=== PATIENT | female | born 2000 | race Two or more races ===

== ENCOUNTER 2019-06-01 21:13 | Inpatient (IN) | payer OTHER ==
[2019-06-01] MEDS ORDERED: RINGERS SOLUTION,LACTATED 300 ML IV ONE (21:31)
[2019-06-01] MEDS ORDERED: DINOPROSTONE 10 MG VAGINAL INSERT.SR PV PRN (21:31)
[2019-06-01 21:58] LABS: APPEARANCE,URINE CLEAR; BILIRUBIN,URINE NEGATIVE (NEGATIVE); COLOR,URINE YELLOW; GLUCOSE, URINE NEGATIVE (NEGATIVE); KETONES,URINE 20 mg/dL (NEGATIVE); LEUKOCYTE ESTERASE,URINE NEGATIVE (NEGATIVE); NITRITE,URINE NEGATIVE (NEGATIVE); PROTEIN,URINE 100 mg/dL (NEGATIVE); URINE SPECIFIC GRAVITY 1.009; UROBILINOGEN,URINE NEGATIVE mg/dL (<2.0)
[2019-06-01 22:13] LABS: URINE AMPHETAMINES SCREEN NEGATIVE; URINE BARBITURATES SCREEN NEGATIVE; URINE BENZODIAZEPINES SCREEN NEGATIVE; URINE COCAINE SCREEN NEGATIVE; URINE MARIJUANA (THC) SCREEN NEGATIVE; URINE METHADONE SCREEN NEGATIVE; URINE PHENCYCLIDINE SCREEN NEGATIVE
[2019-06-01] MEDS ORDERED: DINOPROSTONE 10 MG VAGINAL INSERT.SR ONE (22:27)
[2019-06-01 22:29] LABS: ABSOLUTE MONOCYTES (AUTO) 0.4 10^3/uL (0.1-1.4); ABSOLUTE NEUT (AUTO) 4.6 10^3/uL (1.7-8.2); BASOPHILS % (AUTO) 0.4 % (0-2); EOSINOPHILS % (AUTO) 0.5 % (0-6); HEMATOCRIT 30.7 % (36.0-47.0); LYMPHOCYTES % (AUTO) 27.9 % (13-45); MEAN CORPUSCULAR HEMOGLOBIN 24.6 pg (27.0-33.4); MEAN CORPUSCULAR HGB CONC 32.7 g/dL (32.0-36.0); MEAN CORPUSCULAR VOLUME 75 fl (80-97); MONOCYTES % (AUTO) 6.2 % (3-13); PLATELET COUNT 284 10^3/uL (150-450); RED BLOOD COUNT 4.09 10^6/uL (3.72-5.28); RED CELL DISTRIBUTION WIDTH 15.6 % (11.5-14.0); TOTAL CELLS COUNTED % (AUTO) 100 %
--- NOTE | 2019-06-02 05:53 | Admission Physical ---
Datetime Report Generated by CPN: 06/02/2019 05:52 CURRENT ADMISSION Chief Complaint: Scheduled Induction of Labor Indication for Induction: Gestational HTN Admit Impression : Term, Intrauterine ; Induction of Labor Admit Plan: Admit to Unit; Initiate Labor Induction Protocol ALLERGIES Medication Allergies: No Medication Allergies: No Known Allergies (06/01/2019) Latex: No Latex Allergies Food Allergies: no Environmental Allergies: no OBSTETRICAL HISTORY EDC: 06/06/2019 00:00 : 1 Para: 0 Term: 0 : 0 SAB: 0 IAB: 0 Ectopic: 0 Livin Cesareans: 0 VBACs: 0 Multiple Births: 0 Gestational Diabetes: No Rh Sensitization: No Incompetent Cervix: No NAM: No Infertility: No ART Treatment: No Uterine Anomaly: No IUGR: No Hx Previous C/S: No Macrosomia: No Hx Loss/Stillborn: No PIH: Yes Hx : No Placenta Previa/Abruption: No Depression/PP Depression: No PTL/PROM: No Post Hemorrhage: No Current Procedures: Ultrasound SEE RECORDS Alcohol: No Marijuana : No Cocaine: No Other Illicit Drugs: No Cigarettes: Never Smoker. [id number] MEDICAL HISTORY Diabetes: No Blood Transfusion: No Pulmonary Disease (Asthma, TB): No Breast Disease: No Hypertension: Yes Car Wrecker Surgery: No Heart Disease: No Hosp/Surgery: No Autoimmune Disorder: No Anesthetic Complications: No Kidney Disease: No Abnormal Pap Smear: No Neuro/Epilepsy: No Psychiatric Disorders: No Other Medical Diseases: No Hepatitis/Liver Disease: No Significant Family History: No Varicosities/Phlebitis: No Trauma/Violence : No Thyroid Dysfunction: No INFECTIOUS HISTORY Gonorrhea: No Genital Herpes: No Chlamydia: No Tuberculosis: No Syphilis: No Hepatitis: No HIV/AIDS Exposure: No Rash or Viral Illness: No HPV: No PHYSICAL EXAM General: Normal HEENT: Normal Neurologic: Normal Thyroid: Normal Heart: Normal Lungs: Normal Breast: Normal Back: Normal Abdomen: Normal Genitourinary Exam: Normal Extremities: Normal DTRs: Normal Pelvic Type: Adequate Vital Signs: Reviewed; Within Normal Limits VAGINAL EXAM Dilatation: 0 Effacement: 0 Station: -3 FETUS A EGA: 39.3 Monitoring: External US FHR- Baseline: 140 Variability: Moderate 6-25bpm Accelerations: 15X15 Decelerations: None FHR Category: Category I Estimated Weight (gm): 3900 Presentation: Vertex PLANS FOR LABOR AND DELIVERY Labor and Delivery: None Pain Management: Epidural Feeding Preference: Breast Benefit of Breast Feed Discussed: Yes Circumcision: N/A INFORMED CONSENT Signature: with User ID: [email or web address]
[2019-06-02] MEDS ORDERED: MISOPROSTOL 0.2 MG TABLET ONE ×2 (12:36→20:31)
[2019-06-02] MEDS ORDERED: MISOPROSTOL 0.1 MG TABLET ONE ×2 (12:41→18:44)
[2019-06-02] MEDS: MISOPROSTOL 0.1 MG TABLET PV SCH (12:52)
[2019-06-02] MEDS ORDERED: PENICILLIN G-K 5 MILLION UNIT VIAL ONE (19:39)
[2019-06-02] MEDS: RINGERS SOLUTION,LACTATED 1,000 ML IV PRN (19:51)
[2019-06-02] MEDS ORDERED: OXYTOCIN/NORMAL SALINE 20 UNIT/1,000 ML RTUINJ ONE (20:31)
[2019-06-02] MEDS ORDERED: LIDOCAINE 1% INJ-PF (10 MG/ML) 30 ML SDV ONE (20:31)
[2019-06-02] MEDS ORDERED: OXYTOCIN 10 UNIT/ML VIAL ONE (20:31)
[2019-06-02] MEDS ORDERED: ZOLPIDEM TARTRATE 5 MG TABLET PO ONE (23:43)
[2019-06-02] MEDS ORDERED: LABETALOL HCL INJ 20 MG/4 ML DISP.SYRIN IV ONE ×2 (23:43→23:45)
[2019-06-02] MEDS ORDERED: ZOLPIDEM TARTRATE 5 MG TABLET ONE (23:44)
[2019-06-03] MEDS ORDERED: PENICILLIN G-K 5 MILLION UNIT VIAL ONE ×4 (00:22→14:12)
[2019-06-03] MEDS: MISOPROSTOL 0.1 MG TABLET PV SCH (05:08)
[2019-06-03] MEDS ORDERED: OXYTOCIN/NORMAL SALINE 20 UNIT/1,000 ML RTUINJ IV PRN ×2 (05:37→16:50)
[2019-06-03] MEDS ORDERED: LABETALOL HCL 200 MG TABLET ONE (07:56)
[2019-06-03] MEDS ORDERED: LABETALOL HCL INJ 20 MG/4 ML DISP.SYRIN IV ONE ×2 (07:56→07:57)
[2019-06-03] MEDS ORDERED: FENTANYL/BUPIVACAINE/NS/PF 300 MCG/150 ML RTUINJ EPI ONE (09:15)
[2019-06-03] MEDS ORDERED: BUPIVACAINE HCL 0.25 % INJ/PF (2.5 MG/1 ML) 30 ML VIAL ONE (09:15)
[2019-06-03] MEDS ORDERED: EPHEDRINE SULFATE INJ 50 MG/1 ML AMPULE ONE (09:15)
[2019-06-03] MEDS ORDERED: OXYTOCIN/NORMAL SALINE 20 UNIT/1,000 ML RTUINJ ONE (16:36)
[2019-06-03] MEDS ORDERED: ONDANSETRON HCL INJ/PF 4 MG/2 ML SDV ONE ×2 (16:42→16:44)
[2019-06-03] MEDS ORDERED: PROMETHAZINE HCL INJ 25 MG/1 ML VIAL IV PRN (16:50)
[2019-06-03] MEDS ORDERED: PROMETHAZINE HCL 25 MG SUPP.RECT PR PRN (16:50)
[2019-06-03] MEDS ORDERED: MEASLES,MUMPS&RUBELLA VACC/PF 0.5 ML VIAL SUBCUT PRN (16:50)
[2019-06-03] MEDS ORDERED: GLYCERIN/WITCH HAZEL LEAF 1 EACH MED..WIPE TP PRN (16:50)
[2019-06-03] MEDS ORDERED: DIPHENHYDRAMINE HCL 25 MG CAPSULE PO PRN (16:50)
[2019-06-03] MEDS ORDERED: MAGNESIUM HYDROXIDE SUSP 30 ML UDCUP PO PRN (16:50)
[2019-06-03] MEDS ORDERED: PROMETHAZINE HCL 25 MG TABLET PO PRN (16:50)
[2019-06-03] MEDS ORDERED: NA PHOS,M-B/NA PHOS,DI-BA (ADULT) 133 ML ENEMA PR PRN (16:50)
[2019-06-03] MEDS ORDERED: DIBUCAINE 1% OINTMENT 56 GM TP PRN (16:50)
[2019-06-03] MEDS ORDERED: ACETAMINOPHEN 325 MG TABLET PO PRN (16:50)
[2019-06-03] MEDS ORDERED: DIPH/PERTUSS(ACELL)/TETANUS VAC/PF 0.5 ML SYR (>=10YO) IM PRN (16:50)
[2019-06-03] MEDS ORDERED: BENZOCAINE/MENTHOL AEROSOL SPRAY 56 ML TOP PRN (16:50)
[2019-06-03] MEDS ORDERED: PSEUDOEPHEDRINE HCL 30 MG TABLET PO PRN (16:50)
[2019-06-03] MEDS ORDERED: MISOPROSTOL 0.2 MG TABLET PR ONE (16:51)
[2019-06-03] MEDS: RINGERS SOLUTION,LACTATED 1,000 ML IV PRN (17:39)
--- NOTE | 2019-06-03 17:57 | Delivery Summary ---
Del Sum A-C Datetime Report Generated by CPN: 06/03/2019 17:56 DELIVERY PERSONNEL DELIVERY PERSONNEL: [id number] Delivery Doctor:: Marah Pozo CNM Labor and Delivery Nurse:: Nona Sanford RNarboreal scientist Nurse:: Edwige [place] RN Nursery Nurse:: Kira Penn RN Student Observers:: galilea anthony rn a lewis, sna Art Glass Setter/SPIRITUAL COUNSELOR: Ese Tripathi CNA II Art Glass Setter/SPIRITUAL COUNSELOR: Sondra Pillai, ST MATERNAL INFORMATION Delivery Anesthesia: Epidural Medications After Delivery: Pitocin Bolus-Please Comment; Pitocin Drip 20 Units/1000ml NSS Maternal Complications: None Provider Comments: pt progressed to c/c/2 with urge to push, started pushing and went to deliver a viable baby girl with vigorous respiratory effort and cry with tactile stimulation. Baby with terminal meconium, nursery present at delivery. Baby placed on maternal abdomen, cord allowed to stop pulsating then clamped x2 and cut by FOB (3vc noted). Placenta delivered spontaneously intact. Fundus firm @ u-2 and minimal bleeding at first then large bleeding and boggy uterus. cytotec placed rectally and bleeding was better then large bleeding again, vaginal sweep done large clots out. Bleeding continued on and off no lacerations noted except for small abrasions as stated. In and out catheter placed small amount of urine out. Weighted speculum placed and no cervical laceration noted but large clot out and bleeding stable after that. Fundus firm, minimal bleeding, mother and baby continue in room and bonding at this time. LABOR SUMMARY EDC: 06/06/2019 00:00 No. Babies in Womb: 1 Attempted: No Labor Anesthesia: Epidural LABOR INFORMATION Reason for Induction: Gestational Hypertension Onset of Labor: 06/03/2019 08:00 Complete Dilatation: 06/03/2019 14:01 Cervical Ripening Agents: Cytotec @ 200 mcg Oxytocin: Induction Group B Beta Strep: positive Antibiotics # of Doses: 5 Antibiotics Time of Last Dose: 1417 Name of Antibiotic Given: PENICILLIN G Steroids Given: None Reason Steroids Not Administered: Not Applicable MEMBRANES Membranes Rupture Method: Spontaneous Rupture of Membranes: 06/02/2019 13:00 Length of Rupture (hr): 27.08 Amniotic Fluid Color: Moderate Meconium Amniotic Fluid Amount: Moderate Amniotic Fluid Odor: None STAGES OF LABOR Stage 1 hr: 6 Stage 1 min: 1 Stage 2 hr: 2 Stage 2 min: 4 Stage 3 hr: 0 Stage 3 min: 6 Total Time in Labor hr: 8 Total Time in Labor min: 11 VAGINAL DELIVERY Episiotomy: None Laceration #1: None Laceration Extension #1: N/A Other Laceration: Superficial Vaginal abrasions Laceration Repair: Not Applicable Laceration Repair Note: superficial and not bleeding Sponge Count Correct: N/A Sharps Count Correct: N/A BABY A INFORMATION Infant Delivery Date/Time: 06/03/2019 16:05 Method of Delivery: Vaginal Born in Route : No : N/A Forceps: N/A Vacuum Extraction: N/A Shoulder Dystocia : No PRESENTATION/POSITION BABY A Presentation: Cephalic Cephalic Presentation: Vertex Vertex Position: Left Occipital Anterior Breech Presentation: N/A PLACENTA INFORMATION BABY A Placenta Delivery Time : 06/03/2019 16:11 Placenta Method of Delivery: Spontaneous Placenta Status: Delivered SCORES BABY A Heart Rate 1 min: >100 bpm Resp Effort 1 min: Good Cry Reflex Irritability 1 min: Cough or Sneeze or Pulls Away Muscle Tone 1 min: Active Motion Color 1 min: Body Oretta, Extremities Blue Resuscitation Effort 1 min: Tactile Stimulation SCORE 1 MIN: 9 Heart Rate 5 min: >100 bpm Resp Effort 5 min: Good Cry Reflex Irritability 5 min: Cough or Sneeze or Pulls Away Muscle Tone 5 min: Active Motion Color 5 min: Body Oretta, Extremities Blue Resuscitation Effort 5 min: Tactile Stimulation SCORE 5 MIN: 9 INFORMATION BABY A Gestational Age at Delivery: 39.4 (Annotations: Data stored by [facility] on behalf of user) Gestational Status: Full Term- 39- 40.6 Weeks Outcome : Liveborn Condition : Stable Infant Sex: Female IDENTIFICATION BABY A Infant Verification Date/Time: 06/03/2019 16:57 ID Band Number: [id number] Mother's Name Verified: Yes RN Verifying Infant: Anat Sanford RN Additional Verifying Personnel: T. Kiel, RN WEIGHT/LENGTH BABY A Infant Birthweight (gm): 3195 Infant Weight (lb): 7 Infant Weight (oz): 1 Infant Length (in): 20.50 Length (cm): 52.07 CORD INFORMATION BABY A No. Cord Vessels: 3 Nuchal Cord : N/A Cord Blood Taken: Yes-For Eval (Mom's Blood Type - or O+) Suction: None ASSESSMENT BABY A Complications: Multiple Late Decels; Meconium Physical Findings at Delivery: Caput Succedaneum; Molding of the Head Respirations: Appears Normal Skin to Skin: Yes Skin to Skin Time (min): 60 Veneer Sorter/ALS Called : No Transferred To: Remains with Mother BABY B INFORMATION : N/A SIGNATURES Assignment: Sangeeta Baker MD Signature: with User ID: [email or web address] : with User ID: [email or web address]
[2019-06-03] MEDS: LABETALOL HCL 200 MG TABLET PO SCH ×2 (18:39→22:05)
[2019-06-03] MEDS: IBUPROFEN 800 MG TABLET PO SCH ×2 (18:39→22:04)
[2019-06-03] MEDS: FERROUS SULFATE 325 MG TABLET PO SCH (18:40)
[2019-06-03] MEDS: DOCUSATE SODIUM 100 MG CAPSULE PO SCH (18:40)
[2019-06-03] MEDS ORDERED: INFLUENZA QUAD (6MOS+) 2019-20 VAC 0.5 ML SYR IM ONE (18:41)
[2019-06-03] MEDS: FAMOTIDINE 20 MG TABLET PO SCH (22:03)
[2019-06-04] MEDS: IBUPROFEN 800 MG TABLET PO SCH ×3 (05:54→22:56)
[2019-06-04 06:59] LABS: HEMATOCRIT 25.1 % (36.0-47.0); HEMOGLOBIN 8.1 g/dL (12.0-15.5); MEAN CORPUSCULAR HGB CONC 32.4 g/dL (32.0-36.0); MEAN CORPUSCULAR VOLUME 74 fl (80-97); PLATELET COUNT 200 10^3/uL (150-450); RED CELL DISTRIBUTION WIDTH 15.2 % (11.5-14.0); WHITE BLOOD COUNT 14.5 10^3/uL (4.0-10.5)
[2019-06-04] MEDS: LABETALOL HCL 200 MG TABLET PO SCH ×2 (10:03→22:57)
[2019-06-04] MEDS: PRENATAL VITAMIN W DHA CAPSULE PO SCH (10:03)
[2019-06-04] MEDS: DOCUSATE SODIUM 100 MG CAPSULE PO SCH ×2 (10:04→17:49)
[2019-06-04] MEDS: SENNOSIDES/DOCUSATE 8.6-50 MG 1 EACH TABLET PO SCH (10:04)
[2019-06-04] MEDS: FAMOTIDINE 20 MG TABLET PO SCH ×2 (10:04→22:56)
--- NOTE | 2019-06-04 10:17 | PDOC PROGRESS REPORT ---
Subjective-OB Progress Note for:: 06/04/19 Physical Exam (OB) Vital Signs: Temp Pulse Resp BP Pulse Ox 97.8 F 99 18 126/75 H 100 06/04/19 07:57 06/04/19 07:57 06/04/19 07:57 06/04/19 07:57 06/04/19 07:57 Intake & Output 06/03/19 06/04/19 06/05/19 06:59 06:59 06:59 Intake Total 1000 Balance 1000 - PIH/Pre-Eclampsia DTR's: 1 + Clonus: Negative Headache: Absent Epigastric Pain: No Visual Changes: No - Lochia Lochia Amount: Scant < 10 ml Lochia Color: Rubra/Red - Abdomen Description: Soft Hernia Present: No Bowel Sounds: Normoactive Flatus Presence: Present Stool: Yes Fundal Description: Firm, Midline Fundal Height: u/u - u/2 Objective-Diagnostic Laboratory: 06/04/19 06:45 06/04/19 06:45 WBC 14.5 H D RBC 3.40 L Hgb 8.1 L Hct 25.1 L MCV 74 L MCH 24.0 L MCHC 32.4 RDW 15.2 H Plt Count 200
[2019-06-04] MEDS: FERROUS SULFATE 325 MG TABLET PO SCH ×2 (15:37→17:49)
[2019-06-05] MEDS: IBUPROFEN 800 MG TABLET PO SCH ×2 (05:59→14:23)
[2019-06-05 09:43] VITALS: BP 134/88
[2019-06-05] MEDS: LABETALOL HCL 200 MG TABLET PO SCH (10:16)
[2019-06-05] MEDS: PRENATAL VITAMIN W DHA CAPSULE PO SCH (10:16)
[2019-06-05] MEDS: SENNOSIDES/DOCUSATE 8.6-50 MG 1 EACH TABLET PO SCH (10:16)
[2019-06-05] MEDS: DOCUSATE SODIUM 100 MG CAPSULE PO SCH (10:17)
[2019-06-05] MEDS: FERROUS SULFATE 325 MG TABLET PO SCH (10:17)
[2019-06-05] MEDS: FAMOTIDINE 20 MG TABLET PO SCH (10:18)
--- NOTE | 2019-06-05 11:01 | PDOC DISCHARGE SUMMARY ---
Impression - Admit/DC Date/PCP Admission Date/Primary Care Provider: 06/01/19 21:13 Discharge Date: 06/05/19 - Discharge Diagnosis (1) Anemia complicating , third trimester Is this a current diagnosis for this admission?: Yes (2) Positive GBS test Is this a current diagnosis for this admission?: Yes (3) Pre-eclampsia Is this a current diagnosis for this admission?: No (4) Vaginal delivery Is this a current diagnosis for this admission?: Yes (5) Mild pre-eclampsia Is this a current diagnosis for this admission?: Yes - Additional Information Resuscitation Status: Full Code Discharge Diet: As Tolerated, Regular Discharge Activity: Activity As Tolerated, No Lifting Over 10 Pounds, No Lifting/Push/Pulling, Pelvic Rest Home Medications: [id number]/Iron Fum/Folic/Docusate [ 19 Tablet] 1 each PO DAILY 06/01/19 HPI Gestational Age: 39.4 Reason(s) for Admission: Induction of Labor, PIH, Group B Strep Positive Admission Note: Pre-eclampsia Procedures: NST, Ultrasound Intrapartum Procedure(s): Spontaneous Vaginal Delivery - terminal meconium, uterine atony, female, 7-1 Hospital Course Hospital Course: routine Results Laboratory Results: WBC 14.5 10^3/uL (4.0-10.5) H D 06/04/19 06:45 RBC 3.40 10^6/uL (3.72-5.28) L 06/04/19 06:45 Hgb 8.1 g/dL (12.0-15.5) L 06/04/19 06:45 Hct 25.1 % (36.0-47.0) L 06/04/19 06:45 MCV 74 fl (80-97) L 06/04/19 06:45 MCH 24.0 pg (27.0-33.4) L 06/04/19 06:45 MCHC 32.4 g/dL (32.0-36.0) 06/04/19 06:45 RDW 15.2 % (11.5-14.0) H 06/04/19 06:45 Plt Count 200 10^3/uL (150-450) 06/04/19 06:45 Lymph % (Auto) 27.9 % (13-45) 06/01/19 22:17 [place] % (Auto) 6.2 % (3-13) 06/01/19 22:17 Eos % (Auto) 0.5 % (0-6) 06/01/19 22:17 Baso % (Auto) 0.4 % (0-2) 06/01/19 22:17 Absolute Neuts (auto) 4.6 10^3/uL (1.7-8.2) 06/01/19 22:17 Absolute Lymphs (auto) 2.0 10^3/uL (0.5-4.7) 06/01/19 22:17 Absolute Monos (auto) 0.4 10^3/uL (0.1-1.4) 06/01/19 22:17 Absolute Eos (auto) 0.0 10^3/uL (0.0-0.6) 06/01/19 22:17 Absolute Basos (auto) 0.0 10^3/uL (0.0-0.2) 06/01/19 22:17 Seg Neutrophils % 65.0 % (42-78) 06/01/19 22:17 Urine Color YELLOW 06/01/19 21:30 Urine Appearance CLEAR 06/01/19 21:30 Urine pH 7.0 (5.0-9.0) 06/01/19 21:30 Ur Specific [place] 1.009 06/01/19 21:30 Urine Protein 100 mg/dL (NEGATIVE) H 06/01/19 21:30 Urine Glucose (UA) NEGATIVE mg/dL (NEGATIVE) 06/01/19 21:30 Urine Ketones 20 mg/dL (NEGATIVE) H 06/01/19 21:30 Urine Blood NEGATIVE (NEGATIVE) 06/01/19 21:30 Urine Nitrite NEGATIVE (NEGATIVE) 06/01/19 21:30 Urine Bilirubin NEGATIVE (NEGATIVE) 06/01/19 21:30 Urine Urobilinogen NEGATIVE mg/dL (<2.0) 06/01/19 21:30 Ur Leukocyte Esterase NEGATIVE (NEGATIVE) 06/01/19 21:30 Urine Ascorbic Acid NEGATIVE (NEGATIVE) 06/01/19 21:30 Membranes Rupture POSITIVE (NEGATIVE) H 06/02/19 18:15 Urine Opiates Screen NEGATIVE 06/01/19 21:30 Urine Methadone Screen NEGATIVE 06/01/19 21:30 Ur Barbiturates Screen NEGATIVE 06/01/19 21:30 Ur Phencyclidine Scrn NEGATIVE 06/01/19 21:30 Ur Amphetamines Screen NEGATIVE 06/01/19 21:30 U Benzodiazepines Scrn NEGATIVE 06/01/19 21:30 Urine Cocaine Screen NEGATIVE 06/01/19 21:30 U Marijuana (THC) Screen NEGATIVE 06/01/19 21:30 RPR NONREACTIVE (NONREACTIVE) 06/01/19 22:17 Blood Type O POSITIVE 06/01/19 22:17 Antibody Screen NEGATIVE 06/01/19 22:17 Plan Health Concerns: routine Plan of Treatment: home with baby, take PNV Goals: no complictions Time Spent: Less than 30 Minutes
== END 2019-06-05 14:46 | disposition home or self-care (01) | DRG 807 ==
LOC: LR 21:13 → 2S 06-03 18:26
PROVIDERS: ADMIT Obstetrics & Gynecology; ATTEND Obstetrics & Gynecology
PROC: 10E0XZZ Delivery of Products of Conception, External Approach (ICD-10-PCS; principal; 2019-06-03)
PROC: 3E033VJ Introduction of Other Hormone into Peripheral Vein, Percutaneous Approach (ICD-10-PCS; 2019-06-03)
PROC: 3E02340 Introduction of Influenza Vaccine into Muscle, Percutaneous Approach (ICD-10-PCS; 2019-06-05)
DX: O13.4 Gestational [pregnancy-induced] hypertension without significant proteinuria, complicating childbirth (principal); Z37.0 Single live birth; O76 Abnormality in fetal heart rate and rhythm complicating labor and delivery; O77.0 Labor and delivery complicated by meconium in amniotic fluid; O99.824 Streptococcus B carrier state complicating childbirth; Z3A.39 39 weeks gestation of pregnancy; Z23 Encounter for immunization
CPT/HCPCS: 36415; 80307; 81005; 84112; 85025; 85027; 86592; 86850; 86900; 86901; 90686; J2405; J2540; J2590; J3010; J3490; J7120